=== PATIENT | male | born 1975 | race Caucasian/White ===

== ENCOUNTER 2018-08-17 16:14 | Inpatient (IN) | payer BC ==
[2018-08-17] MEDS: Dextrose 5%-Lactated Ringers 1,000 ML IV SCH (16:50)
[2018-08-17] MEDS ORDERED: Ondansetron 4 MG/2 ML SDV IVPUSH PRN (17:55)
[2018-08-17] MEDS: Piperacillin/Tazobactam 3.375 GM in Sodium Chloride 0.9% 50 ML IV SCH (18:33)
[2018-08-17] MEDS: Sodium Chloride 0.9% 10 ML Syringe FLUSH PRN (19:02)
[2018-08-17] MEDS: Morphine 2 MG/ML Syringe IVPUSH PRN (20:43)
[2018-08-17] MEDS: Acetaminophen 325 MG Tab PO PRN (21:27)
[2018-08-18] MEDS: Piperacillin/Tazobactam 3.375 GM in Sodium Chloride 0.9% 50 ML IV SCH ×4 (00:22→17:38)
[2018-08-18] MEDS: Sodium Chloride 0.9% 10 ML Syringe FLUSH PRN ×6 (00:23→18:21)
[2018-08-18] MEDS: Dextrose 5%-Lactated Ringers 1,000 ML IV SCH ×2 (02:23→22:42)
[2018-08-18] MEDS: Morphine 2 MG/ML Syringe IVPUSH PRN ×2 (04:53→22:47)
--- NOTE | 2018-08-18 09:15 | PCM.PN ---
- General Info Date of Service: 08/18/18 Admission Dx/Problem (Free Text): Acute Appendicitis Functional Status: Reports: Pain Controlled (Pain improved from last night although still present in RLQ) - Review of Systems General: Reports: Fever (to 102.9 last night but now normal) Pulmonary: Reports: No Symptoms Cardiovascular: Reports: No Symptoms Gastrointestinal: Denies: Nausea, Vomiting Genitourinary: Reports: No Symptoms - Patient Data Vitals - Most Recent: Last Vital Signs Temp 98.4 F 08/18/18 08:00 Pulse 70 08/18/18 08:00 Resp 14 08/18/18 08:00 BP 110/67 08/18/18 08:00 Pulse Ox 96 08/18/18 08:00 Weight - Most Recent: 149 lb 8 oz I&O - Last 24 Hours: Intake & Output 08/17/18 08/18/18 08/18/18 22:59 06:59 14:59 Intake Total 675 840 Output Total 175 325 Balance 500 515 Lab Results Last 24 Hours: Laboratory Results - last 24 hr 08/18/18 08/18/18 Range/Units 06:12 06:12 WBC 12.5 H (4.5-12.0) X10-3/uL RBC 5.20 (4.30-5.75) x10(6)uL Hgb 15.5 (11.5-15.5) g/dL Hct 46.1 (30.0-51.3) % MCV 88.8 (80-96) fL MCH 29.8 (27.7-33.6) pg MCHC 33.5 (32.2-35.4) g/dL RDW 11.7 (11.5-15.5) % Plt Count 197 (125-369) X10(3)uL MPV 7.4 (7.4-10.4) fL Add Manual Diff Yes Neutrophils % (Manual) 91 H (46-82) % Band Neutrophils % 1 (0-6) % Lymphocytes % (Manual) 5 L (13-37) % Monocytes % (Manual) 3 L (4-12) % Sodium 137 (135-145) mmol/L Potassium 3.8 (3.5-5.3) mmol/L Chloride 103 (100-110) mmol/L Carbon Dioxide 28 (21-32) mmol/L BUN 12 (7-18) mg/dL Creatinine 1.1 (0.70-1.30) mg/dL Est Cr Clr Drug Dosing 82.63 mL/min Estimated GFR (MDRD) > 60 (>60) BUN/Creatinine Ratio 10.9 (9-20) Glucose 121 H (80-116) mg/dL Calcium 8.3 L (8.6-10.2) mg/dL Total Bilirubin 2.2 H (0.1-1.3) mg/dL AST 10 (5-25) IU/L ALT 17 (12-36) U/L Alkaline Phosphatase 71 (56-112) IU/L Total Protein 6.7 (6.0-8.0) g/dL Albumin 3.0 L (3.5-5.2) g/dL Globulin 3.7 g/dL Albumin/Globulin Ratio 0.8 Med Orders - Current: Current Medications Acetaminophen (Tylenol) 650 mg PO Q4H PRN PRN Reason: Temperature Last Admin: 08/17/18 21:27 Dose: 650 mg Dextrose/Lactated Ringer's (Dextrose 5%-Lactated Ringers) 1,000 mls @ 125 mls/ hr IV ASDIRECTED [facility] Last Admin: 08/18/18 02:23 Dose: 125 mls/hr Piperacillin Sod/Tazobactam (Sod 3.375 gm/ Sodium Chloride) 50 mls @ 100 mls/ hr IV Q6H [facility] Last Admin: 08/18/18 06:21 Dose: 100 mls/hr Morphine Sulfate (Morphine) 1 - 2 mg IVPUSH Q1H PRN PRN Reason: Abdominal Pain Last Admin: 08/18/18 04:53 Dose: 2 mg Ondansetron HCl (Zofran) 4 mg IVPUSH Q4H PRN PRN Reason: Nausea/Vomiting Sodium Chloride (Saline Flush) 10 ml FLUSH ASDIRECTED PRN PRN Reason: Keep Vein Open Last Admin: 08/18/18 07:13 Dose: 10 ml Discontinued Medications Piperacillin Sod/Tazobactam Sod (Zosyn) Confirm Administered Dose 3.375 gm .ROUTE .STK-MED ONE Stop: 08/17/18 18:17 Last Admin: 08/17/18 18:27 Dose: Not Given - Exam General: Alert, Oriented Lungs: Normal Respiratory Effort GI/Abdominal Exam: Soft, Tender (in RLQ with mild fullness, remainder of abdomen now non tender) - Problem List Review Problem List Initiated/Reviewed/Updated: Yes - My Orders Last 24 Hours: My Active Orders 08/17/18 16:25 Patient Status [ADT] Routine Sodium Chloride 0.9% [Saline Flush] 10 ml FLUSH ASDIRECTED PRN Peripheral IV Insertion Adult [OM.PC] Routine 08/17/18 16:30 Dextrose 5%-Lactated Ringers 1,000 ml IV ASDIRECTED 08/17/18 17:54 Morphine 1 - 2 mg IVPUSH Q1H PRN 08/17/18 17:55 Ondansetron [Zofran] 4 mg IVPUSH Q4H PRN 08/17/18 17:57 Patient Status [ADT] Routine Oxygen Therapy [RC] PRN Up ad [place] [RC] ASDIRECTED VTE/DVT Education [RC] Per Unit Routine Vital Signs [RC] 08,12,16,20,00,04 Resuscitation Status Routine 08/17/18 17:58 Intake and Output [RC] QSHIFT 08/17/18 18:00 Piperacillin/Tazobactam [Zosyn] 3.375 gm Sodium Chloride 0.9% [Normal Saline] 50 ml IV Q6H 08/17/18 21:06 Acetaminophen [Tylenol] 650 mg PO Q4H PRN 08/17/18 Dinner NPO [Nothing Per Oral Diet] [DIET] - Assessment Assessment:: Acute Appendicitis - long standing with phlegmon - treating conservatively with IV Antibiotics Improving on current treatment WBC only slightly up and Total Bili decreasing compared to yesterday - Plan Plan:: Continue IV Zosyn Closely monitor will give PO water
[2018-08-19] MEDS: Piperacillin/Tazobactam 3.375 GM in Sodium Chloride 0.9% 50 ML IV SCH ×4 (00:48→18:15)
[2018-08-19] MEDS: Sodium Chloride 0.9% 10 ML Syringe FLUSH PRN ×6 (00:48→18:15)
[2018-08-19] MEDS ORDERED: Acetaminophen/HYDROcodone 325-5 MG Tab PO PRN (10:19)
--- NOTE | 2018-08-19 10:24 | PCM.PN ---
- General Info Date of Service: 08/19/18 Admission Dx/Problem (Free Text): Acute Appendicitis Functional Status: Reports: Pain Controlled (Still having pain in RLQ but remainder of abdomen has no pain and is able to move easier) - Review of Systems Pulmonary: Reports: No Symptoms Gastrointestinal: Reports: Flatus (Small diarrhea stool yesterday), Other ( Beginning to feel hungry). Denies: Nausea, Vomiting Genitourinary: Reports: No Symptoms - Patient Data Vitals - Most Recent: Last Vital Signs Temp 98.7 F 08/19/18 08:00 Pulse 66 08/19/18 08:00 Resp 14 08/19/18 08:00 BP 107/64 08/19/18 08:00 Pulse Ox 96 08/19/18 08:00 Weight - Most Recent: 149 lb 8 oz I&O - Last 24 Hours: Intake & Output 08/18/18 08/19/18 08/19/18 22:59 06:59 14:59 Intake Total 834 1200 Output Total 750 1000 Balance 84 200 Lab Results Last 24 Hours: Laboratory Results - last 24 hr 08/19/18 Range/Units 06:25 WBC 9.2 (4.5-12.0) X10-3/uL RBC 4.96 (4.30-5.75) x10(6)uL Hgb 14.8 (11.5-15.5) g/dL Hct 44.0 (30.0-51.3) % MCV 88.7 (80-96) fL MCH 29.9 (27.7-33.6) pg MCHC 33.7 (32.2-35.4) g/dL RDW 11.8 (11.5-15.5) % Plt Count 197 (125-369) X10(3)uL MPV 7.5 (7.4-10.4) fL Add Manual Diff Yes Neutrophils % (Manual) 84 H (46-82) % Lymphocytes % (Manual) 13 (13-37) % Monocytes % (Manual) 3 L (4-12) % Med Orders - Current: Current Medications Acetaminophen (Tylenol) 650 mg PO Q4H PRN PRN Reason: Temperature Last Admin: 08/17/18 21:27 Dose: 650 mg Hydrocodone Bitart/Acetaminophen ([place] 325-5 Mg) 1 - 2 tab PO Q4H PRN PRN Reason: Pain Dextrose/Lactated Ringer's (Dextrose 5%-Lactated Ringers) 1,000 mls @ 75 mls/ hr IV ASDIRECTED [facility] Last Admin: 08/18/18 22:42 Dose: 125 mls/hr Piperacillin Sod/Tazobactam (Sod 3.375 gm/ Sodium Chloride) 50 mls @ 100 mls/ hr IV Q6H [facility] Last Admin: 08/19/18 05:52 Dose: 100 mls/hr Morphine Sulfate (Morphine) 1 - 2 mg IVPUSH Q1H PRN PRN Reason: Abdominal Pain Last Admin: 08/18/18 22:47 Dose: 2 mg Ondansetron HCl (Zofran) 4 mg IVPUSH Q4H PRN PRN Reason: Nausea/Vomiting Sodium Chloride (Saline Flush) 10 ml FLUSH ASDIRECTED PRN PRN Reason: Keep Vein Open Last Admin: 08/19/18 06:30 Dose: 10 ml Discontinued Medications Piperacillin Sod/Tazobactam Sod (Zosyn) Confirm Administered Dose 3.375 gm .ROUTE .STK-MED ONE Stop: 08/17/18 18:17 Last Admin: 08/17/18 18:27 Dose: Not Given - Exam General: Alert, Oriented Lungs: Normal Respiratory Effort GI/Abdominal Exam: Soft, Tender (in RLQ with fullness in that area; No inguinal masses noted) - Problem List Review Problem List Initiated/Reviewed/Updated: Yes - My Orders Last 24 Hours: My Active Orders 08/19/18 10:19 Acetaminophen/HYDROcodone [[place] 325-5 MG] 1 - 2 tab PO Q4H PRN 08/19/18 Breakfast Clear Liquid Diet [DIET] 08/20/18 05:11 CBC WITH MANUAL DIFF [HEME] AM - Assessment Assessment:: Acute Appendicitis - long standing with phlegmon - treating conservatively with IV Antibiotics Improving on current treatment Has now remained afebrile last 24 hours WBC's now returned to normal - Plan Plan:: Continue IV Zosyn Closely monitor Begin clear liquid diet
[2018-08-19] MEDS: Dextrose 5%-Lactated Ringers 1,000 ML IV SCH (17:29)
[2018-08-20] MEDS: Piperacillin/Tazobactam 3.375 GM in Sodium Chloride 0.9% 50 ML IV SCH ×4 (00:25→17:38)
[2018-08-20] MEDS: Sodium Chloride 0.9% 10 ML Syringe FLUSH PRN ×4 (00:30→11:36)
[2018-08-20] MEDS: Morphine 2 MG/ML Syringe IVPUSH PRN (02:00)
--- NOTE | 2018-08-20 07:35 | PCM.PN ---
- General Info Date of Service: 08/20/18 Admission Dx/Problem (Free Text): Acute Appendicitis - Review of Systems General: Reports: Other (Feels well be has moderate pain in RLQ at bedtime. This am patient having minimal RLQ pain and no other symptoms) Pulmonary: Reports: No Symptoms Gastrointestinal: Reports: Flatus. Denies: Nausea, Vomiting Genitourinary: Reports: No Symptoms - Patient Data Vitals - Most Recent: Last Vital Signs Temp 98.6 F 08/20/18 05:30 Pulse 50 L 08/20/18 05:30 Resp 16 08/20/18 05:30 BP 109/64 08/20/18 05:30 Pulse Ox 97 08/20/18 05:30 Weight - Most Recent: 149 lb 8 oz I&O - Last 24 Hours: Intake & Output 08/19/18 08/20/18 08/20/18 22:59 06:59 14:59 Intake Total 650 700 Output Total 1000 Balance -350 700 Lab Results Last 24 Hours: Laboratory Results - last 24 hr 08/20/18 Range/Units 06:35 WBC 7.3 (4.5-12.0) X10-3/uL RBC 4.72 (4.30-5.75) x10(6)uL Hgb 14.1 (11.5-15.5) g/dL Hct 42.5 (30.0-51.3) % MCV 90.0 (80-96) fL MCH 30.0 (27.7-33.6) pg MCHC 33.3 (32.2-35.4) g/dL RDW 11.8 (11.5-15.5) % Plt Count 212 (125-369) X10(3)uL MPV 7.0 L (7.4-10.4) fL Neut % (Auto) 72.3 (46-82) % Lymph % (Auto) 15.2 (13-37) % [place] % (Auto) 8.2 (4-12) % Eos % (Auto) 3 (1.0-5.0) % Baso % (Auto) 1 (0-2) % Neut # (Auto) 5.3 (1.6-8.3) # Lymph # (Auto) 1.1 (0.6-5.0) # [place] # (Auto) 0.6 (0.0-1.3) # Eos # (Auto) 0.2 (0.0-0.8) # Baso # (Auto) 0.1 (0.0-0.2) # Med Orders - Current: Current Medications Acetaminophen (Tylenol) 650 mg PO Q4H PRN PRN Reason: Temperature Last Admin: 08/17/18 21:27 Dose: 650 mg Hydrocodone Bitart/Acetaminophen ([place] 325-5 Mg) 1 - 2 tab PO Q4H PRN PRN Reason: Pain Dextrose/Lactated Ringer's (Dextrose 5%-Lactated Ringers) 1,000 mls @ 75 mls/ hr IV ASDIRECTED [place] Last Admin: 08/19/18 17:29 Dose: 75 mls/hr Piperacillin Sod/Tazobactam (Sod 3.375 gm/ Sodium Chloride) 50 mls @ 100 mls/ hr IV Q6H [facility] Last Admin: 08/20/18 06:02 Dose: 100 mls/hr Morphine Sulfate (Morphine) 1 - 2 mg IVPUSH Q1H PRN PRN Reason: Abdominal Pain Last Admin: 08/20/18 02:00 Dose: 2 mg Ondansetron HCl (Zofran) 4 mg IVPUSH Q4H PRN PRN Reason: Nausea/Vomiting Sodium Chloride (Saline Flush) 10 ml FLUSH ASDIRECTED PRN PRN Reason: Keep Vein Open Last Admin: 08/20/18 06:08 Dose: 10 ml Discontinued Medications Piperacillin Sod/Tazobactam Sod (Zosyn) Confirm Administered Dose 3.375 gm .ROUTE .STK-MED ONE Stop: 08/17/18 18:17 Last Admin: 08/17/18 18:27 Dose: Not Given - Exam General: Alert, Oriented Lungs: Normal Respiratory Effort GI/Abdominal Exam: Soft, Mass (Still has moderately tender mass in RLQ. Remainer of abdomen soft and non tender.) - Problem List Review Problem List Initiated/Reviewed/Updated: Yes - My Orders Last 24 Hours: My Active Orders 08/19/18 10:19 Acetaminophen/HYDROcodone [[place] 325-5 MG] 1 - 2 tab PO Q4H PRN 08/20/18 07:30 Convert IV to Saline Lock [OM.PC] Routine 08/20/18 Breakfast Full Liquid Diet [DIET] - Assessment Assessment:: Acute Appendicitis - long standing with phlegmon - treating conservatively with IV Antibiotics Improving on current treatment Has now remained afebrile last 48 hours WBC's now returned to normal and continue to improve Tolerated clear liquids - Plan Plan:: Continue IV Zosyn Convert to Saline Lock Advance diet If does well on increased diet consider discharge on PO antibiotics tomorrow
[2018-08-20] MEDS: Acetaminophen 325 MG Tab PO PRN ×2 (14:28→20:56)
[2018-08-21] MEDS: Piperacillin/Tazobactam 3.375 GM in Sodium Chloride 0.9% 50 ML IV SCH ×2 (00:39→06:07)
[2018-08-21] MEDS: Sodium Chloride 0.9% 10 ML Syringe FLUSH PRN ×2 (00:41→06:09)
[2018-08-21] MEDS: Acetaminophen 325 MG Tab PO PRN ×2 (01:38→06:20)
--- NOTE | 2018-08-21 08:01 | PCM.PN ---
- General Info Date of Service: 08/21/18 Admission Dx/Problem (Free Text): Acute Appendicitis Functional Status: Reports: Pain Controlled (Still mild RLQ pain but intermittant and mild - controlled with Tylenol) - Review of Systems General: Denies: Fever, Chills Pulmonary: Reports: No Symptoms Gastrointestinal: Reports: Flatus, Other (Tolerating light diet well). Denies: Nausea, Vomiting Genitourinary: Reports: No Symptoms Musculoskeletal: Reports: No Symptoms - Patient Data Vitals - Most Recent: Last Vital Signs Temp 97.9 F 08/21/18 00:45 Pulse 60 08/21/18 00:45 Resp 18 08/21/18 06:00 BP 114/76 08/21/18 06:00 Pulse Ox 99 08/21/18 00:45 Weight - Most Recent: 149 lb 8 oz I&O - Last 24 Hours: Intake & Output 08/20/18 08/21/18 08/21/18 22:59 06:59 14:59 Intake Total 500 200 Output Total 1000 350 Balance -500 -150 Med Orders - Current: Current Medications Acetaminophen (Tylenol) 650 mg PO Q4H PRN PRN Reason: Temperature Last Admin: 08/21/18 06:20 Dose: 650 mg Hydrocodone Bitart/Acetaminophen ([place] 325-5 Mg) 1 - 2 tab PO Q4H PRN PRN Reason: Pain Piperacillin Sod/Tazobactam (Sod 3.375 gm/ Sodium Chloride) 50 mls @ 100 mls/ hr IV Q6H [place] Last Admin: 08/21/18 06:07 Dose: 100 mls/hr Morphine Sulfate (Morphine) 1 - 2 mg IVPUSH Q1H PRN PRN Reason: Abdominal Pain Last Admin: 08/20/18 02:00 Dose: 2 mg Ondansetron HCl (Zofran) 4 mg IVPUSH Q4H PRN PRN Reason: Nausea/Vomiting Sodium Chloride (Saline Flush) 10 ml FLUSH ASDIRECTED PRN PRN Reason: Keep Vein Open Last Admin: 08/21/18 06:09 Dose: 10 ml Discontinued Medications Dextrose/Lactated Ringer's (Dextrose 5%-Lactated Ringers) 1,000 mls @ 75 mls/ hr IV ASDIRECTED [place] Last Admin: 08/19/18 17:29 Dose: 75 mls/hr Piperacillin Sod/Tazobactam Sod (Zosyn) Confirm Administered Dose 3.375 gm .ROUTE .STK-MED ONE Stop: 08/17/18 18:17 Last Admin: 08/17/18 18:27 Dose: Not Given - Exam General: Alert, Oriented Lungs: Normal Respiratory Effort GI/Abdominal Exam: Soft, Other (Minimal tenderness RLQ but much improved, also mass in RLQ is much smaller then before) - Problem List Review Problem List Initiated/Reviewed/Updated: Yes - My Orders Last 24 Hours: My Active Orders 08/20/18 07:30 Convert IV to Saline Lock [OM.PC] Routine 08/21/18 07:56 Ready for Discharge [RC] PER UNIT ROUTINE 08/21/18 Breakfast Soft Diet [DIET] - Assessment Assessment:: Acute Appendicitis - long standing with phlegmon - treating conservatively with IV Antibiotics Improving on current treatment with less pain and improving mass Afebrile with normal WBCs - Plan Plan:: Discharge on Cipro and Flagyl for 1 week Will follow up with Dr. Mcgill in [place] early next week
== END 2018-08-21 10:03 | disposition home or self-care (01) | DRG 254 ==
LOC: FB.MS 16:14
PROVIDERS: ADMIT Surgery; ATTEND Surgery
DX: K35.80 Unspecified acute appendicitis (principal); L02.91 Cutaneous abscess, unspecified; Z79.899 Other long term (current) drug therapy
CPT/HCPCS: 36415; 80053; 85025; A9270-GY; J2270; J2543; J7042; J7050